=== PATIENT | female | born 1995 | race Caucasian/White ===

== ENCOUNTER 2024-01-24 13:26 | Emergency (ER) | payer OTHER ==
[~2024-01-24] VITALS: Ht 157.5 cm; Wt 86.2 kg
[2024-01-24 13:29] VITALS: BP 128/82; PULSE 78; RESP 18; TEMP 98.6; O2SAT 96
[2024-01-24] MEDS ORDERED: ALBU0.0912 IH (13:48)
[2024-01-24] MEDS ORDERED: BENZ-300 PO (13:49)
[2024-01-24] MEDS ORDERED: PSEU-370 PO (13:49)
[2024-01-24] MEDS ORDERED: ROBAC PO (13:49)
== END 2024-01-24 14:00 | disposition home or self-care (01) ==
LOC: MED 13:26
DX: J06.9 Acute upper respiratory infection, unspecified (principal); R03.0 Elevated blood-pressure reading, without diagnosis of hypertension; Z79.899 Other long term (current) drug therapy
CPT/HCPCS: 99283

== ENCOUNTER 2024-02-16 19:11 | Emergency (ER) | payer OTHER ==
[~2024-02-16] VITALS: Ht 157.5 cm; Wt 86.2 kg
[~2024-02-16 19:11] MED LIST: ALBU0.0912 IH; BENZ-300 PO; PSEU-370 PO; ROBAC PO
[2024-02-16 19:19] VITALS: BP 118/74; PULSE 84; RESP 18; TEMP 98.2; O2SAT 96
[2024-02-16] MEDS: ACETAMINOPHEN 325 MG TAB PO ONE (19:36)
[2024-02-16] MEDS ORDERED: ACET-10509 PO (19:43)
[2024-02-16 19:55] VITALS: BP 118/74; PULSE 84; RESP 18; TEMP 98.2; O2SAT 96
== END 2024-02-16 19:55 | disposition home or self-care (01) ==
LOC: MED 19:11
DX: S90.122A Contusion of left lesser toe(s) without damage to nail, initial encounter (principal); Z79.899 Other long term (current) drug therapy; W55.12XA Struck by horse, initial encounter; Y93.89 Activity, other specified; Y92.89 Other specified places as the place of occurrence of the external cause; Y99.8 Other external cause status
CPT/HCPCS: 73660; 99283